=== PATIENT | female | born 1950 | race Caucasian/White ===

== ENCOUNTER 2020-03-01 15:20 | Outpatient (CLI) | payer MEDICARE, SELFPAY ==
--- NOTE | 2020-03-01 15:33 | XR_ITS ---
WS: [id number] DEXA (DUAL ENERGY X-RAY ABSORPTIOMETRY) Bone mineral density was performed using a [employer] machine. HISTORY: ASYMPTOMATIC MENOPAUSAL STATE COMPARISON: 02/15/2017 Lumbar spine BMD (L1-L4): 1.655 g/cm2 T score: 4.0 Z score: 4.6 Total hip BMD: Left: 1.175 g/cm2. T score: 1.3 Z score: 2.0 Right: 1.197 g/cm2. T score: 1.5 Z score: 2.2 10 year probability of a major osteoporotic fracture is 6%. Compared to the prior study from 02/15/2017. Lumbar spine bone mineral density has increased by 2.6%. Bilateral hips bone mineral density has decreased by 3.9%. XR/XR DEXA axial skeleton* [id number] IMPRESSION: NORMAL BONE MINERAL DENSITY based upon the WHO classification for females. Significant decrease in bone mineral density in the hips since the prior study.
== END 2020-03-01 15:21 | disposition home or self-care (01) ==
LOC: RADWPI 15:24
PROVIDERS: Family Provider Family Medicine; PCP Family Medicine; Visit Provider Family Medicine
DX: Z78.0 Asymptomatic menopausal state (principal)
CPT/HCPCS: 77080

== ENCOUNTER 2020-07-08 14:48 | Outpatient (CLI) | payer MEDICARE, SELFPAY ==
--- NOTE | 2020-07-08 15:00 | USCV_ITS ---
DiazAnjelica Age: 69 Gender: F : 1950 Exam Date: 07/08/2020 15:10 Ordering Phys: Rossana Edwards Technologist: Irma Rankin Exam Location: [facility] [place] Indication: [place] SYNDROM BP: / HR: 70 Rhythm: Sinus Technical Quality: Adequate MEASUREMENTS (Male / Female) Normal Values 2D ECHO LV Diastolic Diameter PLAX 3.5 cm 4.2 - 5.9 / 3.9 - 5.3 cm LV Systolic Diameter PLAX 1.9 cm LV Chamber Size 3.3 cm IVS Diastolic Thickness 1.2 cm 0.6 - 1.0 / 0.6 - 0.9 cm IVS Systolic Thickness 1.3 cm LVPW Diastolic Thickness 1.5 cm 0.6 - 1.0 / 0.6 - 0.9 cm LVPW Systolic Thickness 1.7 cm RV Chamber Size 3.6 cm LVOT Diameter 2.0 cm LV Ejection Fraction 2D Teich 78.4 % LV Ejection Fraction MOD 2C 60.0 % LV Ejection Fraction 2C AL 66.6 % LA Diameter 3.0 cm LA Width 3.0 cm LA Height 3.8 cm RA Width 3.5 cm RA Height 4.7 cm Aorta at Sinotubular Diameter 2.6 cm M-MODE LV Diastolic Diameter MM 3.8 cm 4.2 - 5.9 / 3.9 - 5.3 cm LV Systolic Diameter MM 1.9 cm LV Ejection Fraction MM Teich 82.0 % IVS Diastolic Thickness MM 0.8 cm 0.6 - 1.0 / 0.6 - 0.9 cm IVS Systolic Thickness MM 1.6 cm LVPW Diastolic Thickness MM 1.1 cm 0.6 - 1.0 / 0.6 - 0.9 cm LVPW Systolic Thickness MM 1.6 cm RV Diastolic Diameter MM 1.5 cm Aortic Annulus Diameter 2.1 cm LA Ao Ratio MM 1.8 MV E Point Septal Separation 0.2 cm DOPPLER AV Peak Velocity 174.0 cm/s LVOT Peak Velocity 108.0 cm/s AV Area Cont Eq vti 1.7 cm squared AV Area Cont Eq pk 2.0 cm squared MV Area PHT 4.0 cm squared Mitral E to A Ratio 1.3 MV E' Velocity 53.5 cm/s Mitral E to MV E' Ratio 9.4 Mitral E to LV E' Lateral Ratio 9.0 Mitral E to LV E' Septal Ratio 10.0 TR Peak Velocity 202.0 cm/s TR Peak Gradient 16.3 mmHg TR Mean Velocity 129.8 cm/s TR Mean Gradient 7.9 mmHg TR Velocity Time Integral 42.0 cm TV Peak E Velocity 63.0 cm/s Right Atrial Pressure 3.0 mmHg Pulmonary Artery Systolic Pressu 19.3 mmHg FINDINGS Left Ventricle Normal left ventricular cavity size. Normal left ventricular systolic function. No regional wall motion abnormalities. Left ventricular ejection fraction is estimated at 65 %. Grade II/IV diastolic dysfunction, moderately elevated filling pressures. Right Ventricle The right ventricle is normal in size and function. Right Atrium The right atrium is normal in size. Left Atrium The left atrium is normal in size. Mitral Valve Thickened mitral valve. No mitral valve stenosis. Mild mitral valve regurgitation. Aortic Valve Aortic valve sclerosis without stenosis or regurgitation. Tricuspid Valve Mild tricuspid valve regurgitation. Pulmonic Valve Structurally normal pulmonic valve without significant stenosis. There is no pulmonic regurgitation. Pericardium Normal pericardium without effusion. Aorta Normal ascending aorta dimension. CONCLUSIONS 1-Normal left ventricular cavity size. Normal left ventricular systolic function. No regional wall motion abnormalities. Left ventricular ejection fraction is estimated at 65 %. Grade II/IV diastolic dysfunction, moderately elevated filling pressures. 2-Thickened mitral valve. No mitral valve stenosis. Mild mitral valve regurgitation. 3-Mild tricuspid valve regurgitation. 4-There is no pericardial effusion. 5-Right atrial pressure is around 5 mm of mercury. 6-No significant change since the prior echocardiogram study of 05/13/2015 Quentin Ramos MD (Electronically Signed) Final Date: 10 July 2020 17:58 S
== END 2020-07-08 14:49 | disposition home or self-care (01) ==
PROVIDERS: PCP Family Medicine; Visit Provider Nurse Practitioner Family
DX: I08.1 Rheumatic disorders of both mitral and tricuspid valves (principal)
CPT/HCPCS: 93306

== ENCOUNTER → 2020-12-24 14:09 | Outpatient (BNVA) | payer MEDICARE, SELFPAY | PROVIDERS: PCP Family Medicine; Referring Provider Dermatology; Visit Provider Podiatrist Foot & Ankle Surgery | DX: M19.072 Primary osteoarthritis, left ankle and foot (principal); M79.672 Pain in left foot | CPT/HCPCS: 73630 ==

== ENCOUNTER → 2021-03-27 15:04 | Outpatient (BNVA) | payer MEDICARE, SELFPAY | PROVIDERS: PCP Family Medicine; Visit Provider Nurse Practitioner Family | DX: Z20.822 Contact with and (suspected) exposure to COVID-19 (principal) | CPT/HCPCS: 87635 ==

== ENCOUNTER → 2022-02-16 09:26 | Outpatient (BNVA) | payer MEDICARE, SELFPAY | PROVIDERS: PCP Family Medicine; Visit Provider Nurse Practitioner Family | DX: R00.2 Palpitations (principal); I51.81 Takotsubo syndrome; I47.1 Supraventricular tachycardia | CPT/HCPCS: 99213; 99214 ==

== ENCOUNTER 2022-04-16 20:00 | Outpatient (CLI) | payer MEDICARE, SELFPAY | END 2022-04-16 20:01 | disposition home or self-care (01) | LOC: SLEEP 04-17 07:02 | PROVIDERS: PCP Family Medicine; Visit Provider Family Medicine | DX: G47.33 Obstructive sleep apnea (adult) (pediatric) (principal) | CPT/HCPCS: 95810 ==

== ENCOUNTER 2022-04-24 11:05 | Outpatient (CLI) | payer MEDICARE, SELFPAY ==
--- NOTE | 2022-04-24 11:45 | USCV_ITS ---
Anjelica Diaz Age: 71 Gender: F : 1950 Exam Date: 04/24/2022 11:35 Ordering Phys: Rossana Edwards Technologist: Teressa Martin [place] [facility] [place]: increased palpitations, cardiomyopathy BP: 128 / 74 HR: 60 Rhythm: Sinus Technical Quality: Adequate MEASUREMENTS (Male / Female) Normal Values 2D ECHO LV Diastolic Diameter PLAX 4.3 cm 4.2 - 5.9 / 3.9 - 5.3 cm LV Systolic Diameter PLAX 2.1 cm IVS Diastolic Thickness 0.8 cm 0.6 - 1.0 / 0.6 - 0.9 cm IVS Systolic Thickness 1.4 cm LVPW Diastolic Thickness 0.7 cm 0.6 - 1.0 / 0.6 - 0.9 cm LVPW Systolic Thickness 1.8 cm LVOT Diameter 2.1 cm LV Ejection Fraction 2D Teich 82.3 % LV Ejection Fraction MOD 2C 66.9 % LV Ejection Fraction 2C AL 68.3 % LA Diameter 2.8 cm LA Width 2.9 cm LA Height 2.4 cm RA Width 2.6 cm RA Height 2.5 cm Aorta at Sinotubular Diameter 2.6 cm IVC Diameter 1.0 cm M-MODE MV E Point Septal Separation 0.2 cm DOPPLER AV Peak Velocity 107.0 cm/s LVOT Peak Velocity 93.0 cm/s AV Area Cont Eq vti 3.0 cm squared AV Area Cont Eq pk 3.0 cm squared MV Peak Velocity 127.0 cm/s MV Area PHT 3.7 cm squared Mitral E to A Ratio 1.1 MV E' Velocity 85.0 cm/s PV Peak Velocity 80.0 cm/s RV Acceleration Time 0.1 s RV Ejection Time 0.3 s RV AcT/ET 0.4 FINDINGS Left Ventricle Normal left ventricular size, systolic function and wall thickness, with no regional wall motion abnormalities. Left ventricular ejection fraction is estimated at 65 %. Normal diastolic function. Right Ventricle Normal right ventricular size and systolic function. RVSP could not be calculated due to incomplete tricuspid regurgitation velocity profile. Right Atrium Normal right atrial size. Left Atrium Normal left atrial size. Mitral Valve Structurally normal mitral valve. No mitral valve stenosis. Trace mitral valve regurgitation. Aortic Valve Structurally normal trileaflet aortic valve. No aortic valve stenosis. No aortic valve regurgitation. Tricuspid Valve Structurally normal tricuspid valve. No tricuspid valve stenosis. Trace tricuspid valve regurgitation. Pulmonic Valve Structurally normal pulmonic valve. No pulmonary valve stenosis. Trace pulmonary valve regurgitation. Pericardium No pericardial effusion. Aorta Normal size aortic root and proximal ascending aorta. IVC Inferior vena cava not visualized. CONCLUSIONS 1. Normal left ventricular size, systolic function and wall thickness, with no regional wall motion abnormalities. Left ventricular ejection fraction is estimated at 65 %. Normal diastolic function. 2. Normal right ventricular size and systolic function. 3. No significant valvular abnormality. 4. No change when compared to study dated 07/08/2020. Renetta Crespo MD (Electronically Signed) Final Date: 29 April 2022 12:12 S
== END 2022-04-24 11:06 | disposition home or self-care (01) ==
LOC: RAD 11:06
PROVIDERS: PCP Family Medicine; Visit Provider Nurse Practitioner Family
DX: R00.2 Palpitations (principal); I42.9 Cardiomyopathy, unspecified
CPT/HCPCS: 93306

== ENCOUNTER → 2022-06-08 13:57 | Outpatient (BNVA) | payer MEDICARE, SELFPAY | PROVIDERS: PCP Family Medicine; Visit Provider Internal Medicine Cardiovascular Disease | DX: R07.89 Other chest pain (principal); I51.81 Takotsubo syndrome; I10 Essential (primary) hypertension; E78.2 Mixed hyperlipidemia; I47.1 Supraventricular tachycardia | CPT/HCPCS: 99214 ==

== ENCOUNTER 2022-10-09 13:53 | Outpatient (CLI) | payer MEDICARE, SELFPAY ==
--- NOTE | 2022-10-09 14:13 | CT_ITS ---
WS: [id number] CT HEAD TECHNIQUE: Noncontrast CT of the head obtained from the skullbase to the vertex. CLINICAL INFORMATION: MILD MEMORY DISTURBANCE/OTHER AMNESIA COMPARISON: CT 1 18,011 MRI 2009 DLP: 1071.[address] scans at [facility] use at least one of these dose optimization techniques: automated e xposure control; mA and/or kV adjustment per patient size (includes targeted exams where dose is matc hed to clinical indication); or iterative reconstruction. FINDINGS: No evidence of intracranial hemorrhage or mass effect. Ventricular system and basal cisterns are mosqueda nt. Mild small vessel changes with moderate parenchymal volume loss. No extra-axial fluid collections . No evidence of mass or mass effect. Paranasal sinuses and mastoid air cells are well aerated. .Normal visualized soft tissues. Dystrophic calcification along the anterior falx. This is similar to 2011. CT/CT head wo con* [id number] IMPRESSION: 1. No evidence of intracranial hemorrhage or mass effect. 2. Mild small vessel changes. Moderate parenchymal volume loss slightly progre ssed compared to 2011. 3. Vascular calcification. 4. No acute intracranial findings.
== END 2022-10-09 13:54 | disposition home or self-care (01) ==
LOC: RAD 13:56
PROVIDERS: PCP Family Medicine; Visit Provider Family Medicine
DX: R41.3 Other amnesia (principal)
CPT/HCPCS: 70450

== ENCOUNTER 2022-11-19 20:00 | Outpatient (CLI) | payer MEDICARE, SELFPAY | END 2022-11-19 20:01 | disposition home or self-care (01) | LOC: SLEEP 11-20 05:22 | PROVIDERS: PCP Family Medicine; Visit Provider Family Medicine | DX: G47.33 Obstructive sleep apnea (adult) (pediatric) (principal) | CPT/HCPCS: 95811 ==

== ENCOUNTER 2023-04-19 11:57 | Outpatient (CLI) | payer MEDICARE, SELFPAY ==
--- NOTE | 2023-04-19 12:14 | XR_ITS ---
WS: [id number] XR knee LT 3V* [id number] REASON FOR EXAM: PAIN IN LEFT KNEE FINDINGS: Moderate narrowing of the medial knee joint space with mild to moderate subchondral sclerosis and mod erate marginal osteophytosis. The medial knee joint space is intact and well preserved. No significant narrowing of the patellofemoral joint space. There appears to be a small suprapatellar joint effusion. Mild to moderate subchondral sclerosis and osteophytosis of the patella. IMPRESSION: Moderate osteoarthritis of the left knee with joint effusion.
== END 2023-04-19 11:58 | disposition home or self-care (01) ==
PROVIDERS: PCP Family Medicine; Visit Provider Family Medicine
DX: M17.12 Unilateral primary osteoarthritis, left knee (principal)
CPT/HCPCS: 73562

== ENCOUNTER 2023-11-22 09:39 | Outpatient (CLI) | payer MEDICARE, SELFPAY ==
--- NOTE | 2023-11-22 09:45 | XRR_ITS ---
PROCEDURE INFORMATION: Exam: XR Right Hip Exam date and time: 11/22/2023 9:57 AM Age: 72 years old Clinical indication: Hip pain; Right hip; Additional info: R hip pain TECHNIQUE: Imaging protocol: Radiologic exam of the right hip. Views: 1 view hip with pelvis when performed. COMPARISON: CT abdomen w con* [id number] 08/18/2018 9:37 AM FINDINGS: Bones/joints: Unremarkable. No acute fracture. No significant arthritic changes. Soft tissues: Unremarkable. XR/XR hip RT 2-3V wo/w pel* [id number] IMPRESSION: No acute findings.
--- NOTE | 2023-11-22 09:45 | XRR_ITS ---
PROCEDURE INFORMATION: Exam: XR Left Knee Exam date and time: 11/22/2023 9:57 AM Age: 72 years old Clinical indication: Pain; Knee; Bilateral; Additional info: L knee pain TECHNIQUE: Imaging protocol: Radiologic exam of the left knee. Views: 3 views. COMPARISON: CR XR knee LT 3V* [id number] 04/19/2023 12:19 PM FINDINGS: Bones/joints: Moderate medial compartment narrowing. Mild eburnation. Moderate tricompartment spurring. No erosion or chondrocalcinosis. No acute osseous or joint abnormality.. Soft tissues: Normal. XR/XR knee LT 3V* [id number] IMPRESSION: Moderate degenerative changes.
--- NOTE | 2023-11-22 09:45 | XRR_ITS ---
PROCEDURE INFORMATION: Exam: XR Right Ankle Exam date and time: 11/22/2023 9:57 AM Age: 72 years old Clinical indication: Pain; Ankle; Right; Additional info: R ankle pain TECHNIQUE: Imaging protocol: Radiologic exam of the right ankle. Views: 3 or more views. COMPARISON: CR XR knee RT 3V* [id number] 11/22/2023 9:57 AM FINDINGS: Bones/joints: . No fracture or dislocation. No acute osseous, joint, or soft tissue abnormality. Soft tissues: Normal. XR/XR ankle RT min 3V* [id number] IMPRESSION: No acute findings.
--- NOTE | 2023-11-22 09:47 | XRR_ITS ---
PROCEDURE INFORMATION: Exam: XR Right Knee Exam date and time: 11/22/2023 9:57 AM Age: 72 years old Clinical indication: Pain; Knee; Bilateral; Additional info: R knee pain TECHNIQUE: Imaging protocol: Radiologic exam of the right knee. Views: 3 views. COMPARISON: CR XR ankle RT min 3V* [id number] 11/22/2023 9:57 AM FINDINGS: Bones/joints: Normal. No fracture or dislocation. No significant arthritic changes. No acute osseous or joint abnormality. Soft tissues: Normal. XR/XR knee RT 3V* [id number] IMPRESSION: No acute findings.
== END 2023-11-22 09:40 | disposition home or self-care (01) ==
LOC: RAD 09:42
PROVIDERS: PCP Family Medicine; Visit Provider Family Medicine
DX: M25.571 Pain in right ankle and joints of right foot (principal); M25.562 Pain in left knee; M25.551 Pain in right hip; M17.12 Unilateral primary osteoarthritis, left knee
CPT/HCPCS: 73502; 73562; 73610

== ENCOUNTER → 2023-11-24 16:23 | Outpatient (BNVA) | payer MEDICARE, SELFPAY | PROVIDERS: PCP Family Medicine; Visit Provider Internal Medicine Cardiovascular Disease | DX: R07.9 Chest pain, unspecified (principal); I51.81 Takotsubo syndrome; I10 Essential (primary) hypertension; E78.2 Mixed hyperlipidemia; I47.10 Supraventricular tachycardia, unspecified; R94.31 Abnormal electrocardiogram [ECG] [EKG] | CPT/HCPCS: 93005; 99214 ==

== ENCOUNTER → 2024-01-20 09:37 | Outpatient (BNVA) | payer MEDICARE, SELFPAY | PROVIDERS: PCP Family Medicine; Referring Provider Family Medicine; Visit Provider Student in an Organized Health Care Education/Training Program | DX: M25.561 Pain in right knee (principal); M25.562 Pain in left knee; M17.0 Bilateral primary osteoarthritis of knee | CPT/HCPCS: 73560; 73565; 99204 ==

== ENCOUNTER 2024-02-21 15:19 | Outpatient (CLI) | payer MEDICARE, SELFPAY ==
--- NOTE | 2024-02-21 15:22 | CT_ITS ---
WS: [id number] CT ABDOMEN AND PELVIS NONCONTRAST HISTORY: INCISIONAL HERNIA W/O OBSTRUCTION OF GANGRENE TECHNIQUE: Imaging performed through the abdomen and pelvis. Coronal and sagittal reformats are submi tted. All CT scans at [facility] use at least one of these dose optimization techniques: auto mated exposure control; mA and/or kV adjustment per patient size (includes targeted exams where dose is matched to clinical indication); or iterative reconstruction. DLP: 541.96 mGy.cm COMPARISON: 08/18/2018 Lower thorax: Lung bases are clear. Visualized heart is normal. No hiatal hernia. Liver: Normal size liver. No mass or bile duct dilatation. Gallbladder: Normal gallbladder. No pericholecystic fluid or cholelithiasis. No gallbladder wall thic kening. Pancreas: Normal size and attenuation. Normal pancreatic duct. No pancreatitis or mass. Spleen: Normal. Adrenal glands: Normal. No mass. Right kidney: Normal size kidney with no mass or hydronephrosis. Left kidney: Normal size kidney with no mass or hydronephrosis. Aorta: Mild atherosclerosis abdominal aorta with no aneurysm. No free fluid, intraperitoneal air or significant lymphadenopathy. GI tract: Normal noncontrast imaging of the stomach, small bowel and colon. No obstruction or wall th ickening. Prior appendectomy. Abdominal wall: Negative. No hernia. Pelvis: No free fluid. No adenopathy. Prior hysterectomy. Osseous structures: L4 anterolisthesis by 3 mm. Facet joint disease in the lumbar spine. No abnormali ty at the RIGHT groin. CT/CT abdomen pelvis wo con [id number] IMPRESSION: 1. No abnormality at the RIGHT groin in the area of pain. 2. Prior hysterectomy and appendectomy. 3. No free fluid or ascites. 4. No renal obstruction.
== END 2024-02-21 15:20 | disposition home or self-care (01) ==
PROVIDERS: PCP Family Medicine; Visit Provider Family Medicine
DX: K43.2 Incisional hernia without obstruction or gangrene (principal); M47.816 Spondylosis without myelopathy or radiculopathy, lumbar region; M43.16 Spondylolisthesis, lumbar region; Z98.890 Other specified postprocedural states
CPT/HCPCS: 74176

== ENCOUNTER 2024-06-07 13:21 | Outpatient (CLI) | payer MEDICARE, SELFPAY ==
--- NOTE | 2024-06-07 13:24 | XR_ITS ---
WS: [id number] SCREENING DEXA SCAN [employer] CLINICAL INFORMATION: MILD MEMORY DISTURBANCE COMPARISON: 2019 FINDINGS: The L1-L4 bone mineral density measures 1.705 g/cm2. This corresponds to a T score score of 4.4 and Z score of 5.2. Left femoral neck bone mineral density measures 1.164 g/cm2. This corresponds to a T score of 1.2 and Z score of 2.2. Right femoral neck bone mineral density measures 1.160 g/cm2. This corresponds to a T score 1.2of and Z score of 2.2. Mean femoral neck bone mineral density measures 1.162 g/cm2. This corresponds to a T score of 1.2 and Z score of 2.2. XR/XR DEXA axial skeleton* [id number] IMPRESSION: Normal bone mineralization. Patient's FRAX calculated 10 year probability for major osteoporotic fracture i s 6.4% and osteoporotic hip fracture is 0.3%. Bone mineral density lumbar spine increased 3.0% Bone mineral density femoral necks decreased -2.0%
== END 2024-06-07 13:22 | disposition home or self-care (01) ==
PROVIDERS: PCP Family Medicine; Visit Provider Family Medicine
DX: Z13.820 Encounter for screening for osteoporosis (principal); N95.9 Unspecified menopausal and perimenopausal disorder
CPT/HCPCS: 77080

== ENCOUNTER → 2025-01-01 08:13 | Outpatient (BNVA) | payer MEDICARE, SELFPAY | PROVIDERS: PCP Family Medicine; Visit Provider Nurse Practitioner Family | DX: I51.81 Takotsubo syndrome (principal); I10 Essential (primary) hypertension; E78.2 Mixed hyperlipidemia; G47.33 Obstructive sleep apnea (adult) (pediatric); I25.2 Old myocardial infarction | CPT/HCPCS: 99214 ==

== ENCOUNTER → 2025-05-03 11:05 | Outpatient (BNVA) | payer MEDICARE, SELFPAY | PROVIDERS: PCP Family Medicine; Visit Provider Family Medicine | DX: R41.3 Other amnesia (principal); I10 Essential (primary) hypertension; E78.2 Mixed hyperlipidemia; I47.10 Supraventricular tachycardia, unspecified | CPT/HCPCS: 80053; 80061; 82306; 82607; 83880; 84443; 85025 ==

== ENCOUNTER → 2025-07-03 14:16 | Outpatient (BNVA) | payer MEDICARE, SELFPAY | PROVIDERS: PCP Family Medicine; Visit Provider Internal Medicine Cardiovascular Disease | DX: I51.81 Takotsubo syndrome (principal); I47.10 Supraventricular tachycardia, unspecified; I10 Essential (primary) hypertension; E78.5 Hyperlipidemia, unspecified; R00.2 Palpitations | CPT/HCPCS: 99214 ==

== ENCOUNTER 2025-07-09 19:54 | Outpatient (CLI) | payer MEDICARE, SELFPAY | END 2025-07-09 19:55 | disposition home or self-care (01) | LOC: SLEEP 19:57 | PROVIDERS: PCP Family Medicine; Referring Provider Family Medicine; Visit Provider Internal Medicine Pulmonary Disease | DX: G47.30 Sleep apnea, unspecified (principal); E78.2 Mixed hyperlipidemia; G47.33 Obstructive sleep apnea (adult) (pediatric) | CPT/HCPCS: 95811 ==